=== PATIENT | female | born 1990 | race Caucasian/White ===

== ENCOUNTER 2021-06-08 18:30 | Emergency (ER) | payer MEDICAID ==
[~2021-06-08] VITALS: Ht 162.6 cm; Wt 68.0 kg
[2021-06-08] MEDS ORDERED: ONDANSETRON HCL/PF 4 MG/2 ML VIAL IVP ONE (19:00)
[2021-06-08] MEDS ORDERED: MORPHINE SULFATE INJ 2 MG/ML DISP.SYRIN IV ONE (19:00)
--- NOTE | 2021-06-08 19:00 | NUR ---
DAVID RA89 @ 1832 C/O "Abdominal pain all over to back. Ate michele for lunch 2H later pain +nausea" PT A/OX4. TOLERATING R/A WELL AT 100% NO SOB
[2021-06-08 19:30] LABS: BILIRUBIN,URINE NEGATIVE (NEGATIVE); COLOR,URINE YELLOW (YELLOW); LEUKOCYTE ESTERASE ,URINE NEGATIVE (NEGATIVE); NITRITE, URINE NEGATIVE (NEGATIVE); PH,URINE 6.5 (5.0-8.0); PROTEIN,URINE NEGATIVE (NEGATIVE); UGLUCOSE NEGATIVE (NEGATIVE); UROBILINOGEN,URINE 0.2 EU/dL (0.2)
[2021-06-08] MEDS ORDERED: MORPHINE SULFATE INJ 4 MG/ML DISP.SYRIN ONE (19:32)
[2021-06-08] MEDS ORDERED: ONDANSETRON HCL/PF 4 MG/2 ML VIAL ONE (19:32)
--- NOTE | 2021-06-08 19:42 | NUR ---
20G IV LINE INITIATED IN THE RAC PATENT AND INTACT. BLOOD DRAWN AND SENT TO LAB
[2021-06-08 19:45] LABS: BACTERIA,URINE Few /HPF (None Seen); SQUAMOUS EPITHELIAL CELL,UR Few /HPF (None Seen); WBC,URINE 0-2 /HPF (0-3)
[2021-06-08 20:19] LABS: BASOPHILS % (AUTO) 0.2 % (0.0-2.0); EOSINOPHILS % (AUTO) 0.6 % (0.0-6.0); HEMATOCRIT 39 % (33-45); LYMPHOCYTES # (AUTO) 2.7 K/uL (0.8-4.8); LYMPHOCYTES % (AUTO) 26.7 % (20.0-44.0); MEAN CORPUSCULAR HGB CONC 34 g/dl (31.0-36.0); MEAN CORPUSCULAR VOLUME 88 fL (82-100); MONOCYTES # (AUTO) 0.5 K/uL (0.1-1.30); NEUTROPHILS # (AUTO) 6.7 K/uL (1.8-8.9); NEUTROPHILS % (AUTO) 67.5 % (43.0-81.0); PLATELET COUNT (AUTO) 293 K/uL (150-450); RED BLOOD CELL COUNT(AUTO) 4.44 MIL/uL (4.0-5.2)
[2021-06-08 20:21] LABS: CALCIUM, SERUM 9.1 mg/dL (8.5-10.1); CREATININE 0.9 mg/dL (0.6-1.3); POTASSIUM 3.2 mmol/L (3.5-5.1)
[2021-06-08 20:25] LABS: ALBUMIN 3.9 g/dL (3.4-5.0); BILIRUBIN,DIRECT 0.2 mg/dL (0.0-0.2); BILIRUBIN,TOTAL 0.7 mg/dL (0.2-1.0); TOTAL PROTEIN, SERUM 7.4 g/dL (6.4-8.2)
[2021-06-08] MEDS ORDERED: IBUP-1955 PO (21:10)
[2021-06-08] MEDS ORDERED: TRAM50TA2 PO (21:10)
--- NOTE | 2021-06-08 21:23 | NUR ---
Patient discharged to home in stable condition. Written and verbal after care instructions given. Patient verbalizes understanding of instruction.IV removed. Catheter intact and site benign. Pressure and 4x4 applied to site. No bleeding noted. Pt ambulatory with a steady gait
[2021-06-08 21:24] VITALS: BP 117/72
== END 2021-06-08 21:25 | disposition home or self-care (01) ==
LOC: ER 18:36
DX: K80.50 Calculus of bile duct without cholangitis or cholecystitis without obstruction (principal); R10.11 Right upper quadrant pain; R10.13 Epigastric pain
CPT/HCPCS: 36415; 76705; 80048; 80076; 81001; 83690; 84703; 85025; 96374; 96375; 99284; J2270; J2405

== ENCOUNTER 2022-01-08 20:43 | Inpatient (IN) | payer MEDICAID, OTHER ==
[~2022-01-08] VITALS: Ht 160 cm; Wt 64.9 kg
[~2022-01-08 20:43] MED LIST: IBUP-1955 PO; TRAM50TA2 PO
--- NOTE | 2022-01-08 20:49 | NUR ---
GISSEL 89 FROM HOME FOR SEVERE ABD PAIN X 2 HOURS. HAD GUSTAVO 3 DAYS. PT A/OX4. TOLERATING R/A AT 100%. CONNECTED PT TO POX AND MONITOR. SAFETY MEASURES IN PLACE.
--- NOTE | 2022-01-08 21:15 | NUR ---
COVIE SWAB DONE AND SENT TO LAB
--- NOTE | 2022-01-08 21:15 | NUR ---
IV CANNULA G20 INSERTED ON LEFT AC AND RIGHT AC. BLOOD DRAWN AND SENT TO LAB.
--- NOTE | 2022-01-08 21:20 | NUR ---
SEEN BY PAVAN PECK AT BEDSIDE
[2022-01-08] MEDS ORDERED: MORPHINE SULFATE INJ 4 MG/ML DISP.SYRIN ONE (21:26)
[2022-01-08] MEDS ORDERED: ONDANSETRON HCL/PF 4 MG/2 ML VIAL ONE (21:26)
[2022-01-08] MEDS ORDERED: MORPHINE SULFATE INJ 10 MG/ML DISP.SYRIN IV ONE (21:30)
[2022-01-08] MEDS ORDERED: ONDANSETRON HCL/PF 4 MG/2 ML VIAL IV ONE (21:30)
[2022-01-08] MEDS ORDERED: IV NS 0.9% 1,000 ML BAG IV ONE (21:30)
--- NOTE | 2022-01-08 21:32 | NUR ---
SEEN BY DR RUIZ AT BEDSIDE.
[2022-01-08 21:35] LABS: BASOPHILS % (AUTO) 0.3 % (0.0-2.0); HEMATOCRIT 40 % (33-45); HEMOGLOBIN 13.4 g/dL (11.5-14.8); LYMPHOCYTES # (AUTO) 2.7 K/uL (0.8-4.8); LYMPHOCYTES % (AUTO) 25.8 % (20.0-44.0); MEAN CORPUSCULAR HGB CONC 34 g/dl (31.0-36.0); MEAN CORPUSCULAR VOLUME 88 fL (82-100); MONOCYTES # (AUTO) 0.6 K/uL (0.1-1.30); MONOCYTES % (AUTO) 5.4 % (2.0-12.0); NEUTROPHILS # (AUTO) 7.2 K/uL (1.8-8.9); NEUTROPHILS % (AUTO) 67.5 % (43.0-81.0); PLATELET COUNT (AUTO) 295 K/uL (150-450); RED BLOOD CELL COUNT(AUTO) 4.51 MIL/uL (4.0-5.2); WHITE BLOOD COUNT (AUTO) 10.6 K/uL (4.3-11.0)
[2022-01-08 21:40] LABS: CALCIUM, SERUM 9.2 mg/dL (8.5-10.1); CREATININE 0.5 mg/dL (0.6-1.3); POTASSIUM 3.6 mmol/L (3.5-5.1)
[2022-01-08 21:48] LABS: ALBUMIN 3.6 g/dL (3.4-5.0); BILIRUBIN,DIRECT 1.4 mg/dL (0.0-0.2); BILIRUBIN,TOTAL 2.5 mg/dL (0.2-1.0); TOTAL PROTEIN, SERUM 7.7 g/dL (6.4-8.2)
--- NOTE | 2022-01-08 21:52 | NUR ---
BLOOD DRAWN FOR BLOOD CULTURE.
--- NOTE | 2022-01-08 22:04 | NUR ---
NGT INSERTED TO LEFT NOSTRIL AT THE LEVEL OF 53CM. LEFT OPEN TO DRAIN. PAAVN PECK MADE AWARE
--- NOTE | 2022-01-08 22:12 | NUR ---
JASON WEEMS AT BEDSIDE.
--- NOTE | 2022-01-08 22:12 | NUR ---
NGT TO INTERMITTENT SUCTIONING.
--- NOTE | 2022-01-08 22:50 | NUR ---
DR MATHUR PAGED PER LIV BROWNE.
--- NOTE | 2022-01-08 23:44 | NUR ---
Fili corley in [facility] - 01/08/22 at 2349 by SY [id number]
--- NOTE | 2022-01-08 23:57 | NUR ---
REPORT GIVEN TO LAUREL BILLY
[2022-01-09] MEDS ORDERED: Z GUARD REMEDY 4 OZ OINT TP PRN
[2022-01-09] MEDS ORDERED: ONDANSETRON HCL/PF 4 MG/2 ML VIAL IVP PRN
[2022-01-09] MEDS ORDERED: MORPHINE SULFATE INJ 2 MG/ML DISP.SYRIN IV PRN
[2022-01-09] MEDS ORDERED: ACETAMINOPHEN 325 MG TABLET PO PRN
--- NOTE | 2022-01-09 00:04 | NUR ---
PER LIV REILLY VERBAL ORDER TO D/C NGT. ORDERS CARRIED OUT. PT TOLERATED WELL.
--- NOTE | 2022-01-09 00:09 | NUR ---
NGT REMOVED PER ORDER BY PAVAN PECK
--- NOTE | 2022-01-09 00:15 | NUR ---
PT TRANSFERRED TO ROOM VIA BED.
[2022-01-09] MEDS ORDERED: PIPERACILLIN /TAZOBACTAM 3.375 G in IV D5W 50 ML IV SCH ×2 (00:16→05:00)
--- NOTE | 2022-01-09 00:20 | NUR ---
ADMISSION NOTES RECEIVED PT VIA [employer]STER ACCOMPANIED BY NURSE AT APPROXIMATELY 0020. AOx4, ABLE TO MAKE NEEDS KNOWN. ON RA AND TOLERATING WELL. NO SOB NOTED. NO S/SX OF RESPIRATORY DISTRESS NOTED. IV ACCESS IN RAC #20 AND LAC#20 RUNNING D5 1/2 NS WITH 20 mEQ OF POTASSIUM CHLORIDE @ 75 ML/HR. NO COMPLAINTS OF PAIN AT THIS TIME. SAFETY PRECAUTIONS IN PLACE: BED IN LOWEST, LOCKED POSITION, SIDERAILS UPx2, AND BRKES ON. TABLE AND CALL LIGHT WITHIN REACH. WILL CONTINUE PLAN OF CARE.
[2022-01-09 00:30] VITALS: BP 117/72
[2022-01-09] MEDS ORDERED: IV PREMIX D5 1/2NS + KCL 1,000 ML IV ONE (01:14)
[2022-01-09] MEDS: Potassium Chloride 20 MEQ in IV D5/0.45 NACL 1,000 ML IV PRN ×2 (01:31→15:41)
[2022-01-09 06:52] LABS: BASOPHILS % (AUTO) 0.2 % (0.0-2.0); EOSINOPHILS % (AUTO) 1.7 % (0.0-6.0); HEMATOCRIT 36 % (33-45); HEMOGLOBIN 12.4 g/dL (11.5-14.8); LYMPHOCYTES # (AUTO) 2.9 K/uL (0.8-4.8); LYMPHOCYTES % (AUTO) 29.4 % (20.0-44.0); MEAN CORPUSCULAR HGB CONC 34 g/dl (31.0-36.0); MEAN CORPUSCULAR VOLUME 88 fL (82-100); MONOCYTES # (AUTO) 0.5 K/uL (0.1-1.30); MONOCYTES % (AUTO) 4.9 % (2.0-12.0); NEUTROPHILS # (AUTO) 6.3 K/uL (1.8-8.9); NEUTROPHILS % (AUTO) 63.8 % (43.0-81.0); PLATELET COUNT (AUTO) 272 K/uL (150-450); RED BLOOD CELL COUNT(AUTO) 4.11 MIL/uL (4.0-5.2); WHITE BLOOD COUNT (AUTO) 9.9 K/uL (4.3-11.0)
--- NOTE | 2022-01-09 07:04 | NUR ---
RN CLOSING NOTES PT IN BED, ASLEEP, AWAKENS TO VERBAL STIMULI. AOx4, ABLE TO MAKE NEEDS KNOWN. ON RA AND TOLERATING WELL. NO SOB NOTED. NO S/SX OF RESPIRATORY DISTRESS NOTED. IV ACCESS IN RAC #20 AND LAC#20 RUNNING D5 1/2 NS WITH 20 mEQ OF POTASSIUM CHLORIDE @ 75 ML/HR. NO COMPLAINTS OF PAIN THROUGHOUT SHIFT. ALL ORDERS CARRIED OUT. ALL NEEDS MET. PT KEPT CLEAN AND DRY. PT KEPT NPO. SAFETY PRECAUTIONS IN PLACE: BED IN LOWEST, LOCKED POSITION, SIDERAILS UPx2, AND BRKES ON. TABLE AND CALL LIGHT WITHIN REACH. WILL ENDORSE TO ONCOMING SHIFT FOR BRENNAN.
[2022-01-09 07:12] LABS: CALCIUM, SERUM 8.5 mg/dL (8.5-10.1); CREATININE 0.5 mg/dL (0.6-1.3); POTASSIUM 3.6 mmol/L (3.5-5.1)
--- NOTE | 2022-01-09 07:30 | NUR ---
RN Receiving Notes PT AOx4, able to express her own concerns. Patient was made aware of plan of care for today and agrees with scheduled procedures. Patient made aware of how to use call light for assistance. Introduced myself, all safety precautions taken, call light and table within reach, bed at lowest position. Will continue to monitor throughout shift, administer medications as ordered, and provide care as needed.
[2022-01-09 08:00] VITALS: BP 104/62
[2022-01-09] MEDS: PIPERACILLIN /TAZOBACTAM 3.375 G in IV D5W 100 ML IV SCH ×2 (08:47→15:07)
[2022-01-09] MEDS: PANTOPRAZOLE 40 MG VIAL IV SCH (09:07)
[2022-01-09] MEDS ORDERED: LACTULOSE 10 G/15 ML UDC (PYXIS) PO ONE (09:30)
[2022-01-09] MEDS ORDERED: SORBITOL SOLUTION 70% 30 ML SOLUTION PO ONE (09:30)
[2022-01-09 10:11] LABS: ALBUMIN 2.9 g/dL (3.4-5.0); BILIRUBIN,DIRECT 1.5 mg/dL (0.0-0.2); BILIRUBIN,TOTAL 2.3 mg/dL (0.2-1.0); TOTAL PROTEIN, SERUM 6.5 g/dL (6.4-8.2)
[2022-01-09] MEDS: diphenhydrAMINE HCL ELIX 25 MG/10 ML UDC PO PRN (13:04)
--- NOTE | 2022-01-09 14:00 | NUR ---
Mid Shift Report. PT AOx4, able to exress her own concerns. Has had 2 bowel movements since Bisacodyl Suppository was administered. Patient states last bowel movement at home was 6 days ago. Patient states she feels some relief. Surgical incisions from past surgery are dry, no signs of infection. Patient states abdomen is "a little tender". Administered medications, antibiotics, and fluids as ordered. 20g IV on both arms, no signs of infiltration. Will continue to monitor and educate patient on importance of fiber and hydration while taking supplements and iron. Patient has been able to walk to bathroom, denied bedside commode. was able to walk with patient around unit. Patient has remained safe throughout shift, no incidents to report. Will continue to monitor.
[2022-01-09] MEDS ORDERED: BISACODYL SUPP (10 MG) 10 MG/SUPP.RECT SUPP.RECT RC PRN ×2 (15:00→15:30)
[2022-01-09 16:30] LABS: BILIRUBIN,URINE MODERATE (NEGATIVE); COLOR,URINE DARK YELLOW (YELLOW); LEUKOCYTE ESTERASE ,URINE NEGATIVE (NEGATIVE); NITRITE, URINE NEGATIVE (NEGATIVE); PH,URINE 6.5 (5.0-8.0); PROTEIN,URINE NEGATIVE (NEGATIVE); UGLUCOSE NEGATIVE (NEGATIVE); UROBILINOGEN,URINE 0.2 EU/dL (0.2)
[2022-01-09 16:45] LABS: BACTERIA,URINE Many /HPF (None Seen); SQUAMOUS EPITHELIAL CELL,UR Few /HPF (None Seen)
[2022-01-09 16:46] LABS: WBC,URINE 0-2 /HPF (0-3)
[2022-01-09 18:03] VITALS: BP 111/77
--- NOTE | 2022-01-09 18:38 | NUR ---
RN closing Notes Patient AOx4. Fluids and medications administered as prescribed, provided care and assistance as needed. IV 20g on Right and left arm, no signs of infiltration, no pain on site reported. Patient had 2 bowel movements during shift. Patient maintained safe throughout shift, all safety precautions taken, bed at lowest position, call light and table within reach. Administered medications and hydration as prescribed, provided care and assistance as needed.
[2022-01-09 20:00] VITALS: BP 116/78
--- NOTE | 2022-01-09 20:00 | NUR ---
RN OPENING Notes Patient AOx4. all need met at this time..IV 20g on Right and left arm, no signs of infiltration, no pain on site reported. Patient maintained safe throughout shift, all safety precautions taken, bed at lowest position, call light and table within reach. all need met at this time.
[2022-01-09] MEDS: ENOXAPARIN SODIUM 40 MG/0.4 ML DISP.SYRIN SQ SCH ×2 (21:00)
[2022-01-10] MEDS: PIPERACILLIN /TAZOBACTAM 3.375 G in IV D5W 100 ML IV SCH (00:13)
--- NOTE | 2022-01-10 00:30 | NUR ---
RN NOTES PT REPORTED ITCHINESS AFTER 25 MINS OF STARTING THE ZOSYN GENERALIZED NOTED WITH SOME REDNESS ON THE LOWER EXTREMITIES. PRN BENADRYL GIVEN CORPORATE TECHNICAL RECRUITER CUT OFF SAWYER EUGENIA NOTIFIED. ORDERS TO D/C ZOSYN AND HAVE DAY SHIFT NURSE FOLLOW UP WITH PCP. AFTER BENADRYL WAS GIVEN PT WAS ABLE TO SLEEP COMFORTABLY AND ITCHING STOPPED.
[2022-01-10] MEDS: diphenhydrAMINE HCL ELIX 25 MG/10 ML UDC PO PRN (00:36)
--- NOTE | 2022-01-10 00:36 | NUR ---
RN note PT REPORTED ITCHING ON ALL EXTREMITIES. PRN BENADRYL GIVEN TOLERATED WELL.
[2022-01-10 05:50] LABS: BASOPHILS # (AUTO) 0.1 K/uL (0.0-0.2); BASOPHILS % (AUTO) 0.5 % (0.0-2.0); EOSINOPHILS % (AUTO) 3.3 % (0.0-6.0); HEMATOCRIT 37 % (33-45); HEMOGLOBIN 12.3 g/dL (11.5-14.8); LYMPHOCYTES # (AUTO) 2.6 K/uL (0.8-4.8); LYMPHOCYTES % (AUTO) 28.1 % (20.0-44.0); MEAN CORPUSCULAR HGB CONC 34 g/dl (31.0-36.0); MEAN CORPUSCULAR VOLUME 89 fL (82-100); MONOCYTES # (AUTO) 0.6 K/uL (0.1-1.30); MONOCYTES % (AUTO) 6.8 % (2.0-12.0); NEUTROPHILS # (AUTO) 5.7 K/uL (1.8-8.9); NEUTROPHILS % (AUTO) 61.3 % (43.0-81.0); PLATELET COUNT (AUTO) 271 K/uL (150-450); RED BLOOD CELL COUNT(AUTO) 4.11 MIL/uL (4.0-5.2); WHITE BLOOD COUNT (AUTO) 9.3 K/uL (4.3-11.0)
[2022-01-10 06:21] LABS: ALBUMIN 2.9 g/dL (3.4-5.0); BILIRUBIN,DIRECT 0.4 mg/dL (0.0-0.2); BILIRUBIN,TOTAL 1.5 mg/dL (0.2-1.0); CALCIUM, SERUM 8.9 mg/dL (8.5-10.1); CREATININE 0.6 mg/dL (0.6-1.3); PHOSPHORUS 3.5 mg/dL (2.5-4.9); POTASSIUM 3.6 mmol/L (3.5-5.1); TOTAL PROTEIN, SERUM 6.6 g/dL (6.4-8.2)
--- NOTE | 2022-01-10 06:34 | NUR ---
RN CLOSING NOTE Patient asleep in bed comfortable easily woken up. IV 20g on Right arm running 1/2 ns +kcl 20meq no signs of infiltration, no pain on site reported. Patient maintained safe throughout shift, all safety precautions taken, bed at lowest position, call light and table within reach. pt had one episode of emesis zofran given emesis stopped yesterday nigh. pt was able to tolerate liquids without n/v this morning.all need met at this time. call light within reach. table within reach. bed in low position. will endorse to day shift for continuity of care.
--- NOTE | 2022-01-10 07:44 | NUR ---
RN OPENING NOTES: RECEIVED PT ASLEEP BUT EASILY ROUSED, A/OX4, ABLE TO VERBALIZED NEEDS. ON RA TOLERATING WELL, NO S/S OF SOB OR ACUTE DISTRESS AT THE MOMENT AND DENIES PAIN AT THIS TIME. IV ACCESS RAC #20 RUNNING 1/2 NS+ KCL 20meq @ 75ML/HR. SAFETY MEASURES IN PLACE, HOB ELVATED AND LOCKED IN LOWEST POSITION, TABLE AND CALL LIGHT WITHIN REACH, WILL CONTINUE TO ASSESS PT THROUGHOUT SHIFT.
[2022-01-10 08:00] VITALS: BP 98/64
[2022-01-10] MEDS: PANTOPRAZOLE 40 MG VIAL IV SCH (08:36)
--- NOTE | 2022-01-10 08:36 | NUR ---
manual barcode entered for pantoprazole, vial discarded before scanning
--- NOTE | 2022-01-10 11:33 | NUR ---
MS RN DC NOTES: PT IS STABLE UPON DC, VS WNL, NO S/S OF ACUTE DISTRESS OR SOB ON RA PT GIVEN DC INSTRUCTIONS, VERBALIZED UNDERSTANDING. PT SIGNED BELONGINGS LIST AND DC INSTRUCTIONS, DC PACKET GIVEN TO PT. STAFF ESCORTED PT TO LOBBY, PARTNER MET PT WITH PRIVATE CAR.
[2022-01-11] MEDS ORDERED: PANTOPRAZOLE 40 MG TABLET.DR PO SCH (07:30)
== END 2022-01-10 11:30 | disposition home or self-care (01) | DRG 566 ==
LOC: ER 20:45 → MED 23:46
PROVIDERS: ADMIT Nurse Practitioner Acute Care; ATTEND Nurse Practitioner Acute Care
DX: O26.892 Other specified pregnancy related conditions, second trimester (principal); K59.00 Constipation, unspecified; Z3A.13 13 weeks gestation of pregnancy; R74.01 Elevation of levels of liver transaminase levels; R74.8 Abnormal levels of other serum enzymes; Z90.49 Acquired absence of other specified parts of digestive tract; Z20.822 Contact with and (suspected) exposure to COVID-19
CPT/HCPCS: 36415; 74181-TC; 76700-TC; 76805-TC; 80048-TC; 80076-TC; 81001; 83605-TC; 83690-TC; 83735-TC; 84100-TC; 84702-TC; 85025-TC; 85610-TC; 85730-TC; 87040-TC; 87081-TC; 87086-TC; C9113; C9803; G0378; J2270; J2405; J2543; J3480; J3490; J7030; J7040; J7060; Q0163